=== PATIENT | female | born 1990 | race American Indian/Alaskan Native ===

== ENCOUNTER 2020-06-16 04:53 | Emergency (ER) | payer MEDICAID ==
--- NOTE | 2020-06-16 05:03 | EDM.PDOC ---
ED HPI GENERAL MEDICAL PROBLEM - General Chief Complaint: Drug or Alcohol Abuse Stated Complaint: MEDICAL VIA [place] Time Seen by Provider: 06/16/20 04:57 Source of Information: Reports: Patient, EMS History Limitations: Reports: No Limitations - History of Present Illness INITIAL COMMENTS - FREE TEXT/NARRATIVE: Marion is a 29-year-old female presenting to the ED via [facility] after having an episode of unresponsiveness. Law enforcement intercepted the patient at the [facility] where she was found unresponsive. The patient was administered Narcan 2 mg by law enforcement and they initiated CPR presumably for an absent pulse. Ice was activated and on their arrival she was alert and complaining of chest pain. The patient reports that she had been drinking [place] apple and took Percocet 30 mg likely resulting in her unresponsiveness. Rest of the details are a bit cloudy because of the patient's unresponsiveness. To the ED with a blood pressure 106/60, pulse rate of 110, SPO2 of 97% on 2 L. Treatments [employer]: Reports: See EMS Report, Other (see below) Other Treatments [employer]: narcan Middle Chest Pain Score (Numeric/FACES): 8 - Related Data Allergies Allergy/AdvReac Type Severity Reaction Status Date / Time No Known Allergies Allergy Verified 06/16/20 04:58 Home Meds: Home Meds NK [No Known Home Meds] 09/08/15 [History] Past Medical History - Past Health History Medical/Surgical History: Denies Medical/Surgical History ED ROS GENERAL - Review of Systems Review Of Systems: See Below Constitutional: Reports: No Symptoms HEENT: Reports: No Symptoms Respiratory: Reports: Other (Witnessed apnea after consuming alcohol and Percocet) Cardiovascular: Reports: Chest Pain (Presumably due to recent CPR) Endocrine: Reports: No Symptoms GI/Abdominal: Reports: No Symptoms : Reports: No Symptoms Musculoskeletal: Reports: No Symptoms Skin: Reports: No Symptoms Neurological: Reports: Seizure (EMS reported that the patient appeared to be having a seizure as noted by bystanders. They did not directly witness any seizure activity.) Psychiatric: Reports: Anxiety Hematologic/Lymphatic: Reports: No Symptoms Immunologic: Reports: No Symptoms ED EXAM, GENERAL - Physical Exam Exam: See Below Exam Limited By: No Limitations General Appearance: Alert, Anxious, Mild Distress Eye Exam: Bilateral Eye: EOMI, PERRL Throat/Mouth: Normal Inspection, Normal Lips, Normal Oropharynx, Normal Voice, No Airway Compromise Head: Atraumatic, Normocephalic Neck: Normal Inspection, Supple Respiratory/Chest: No Respiratory Distress, Lungs Clear, Normal Breath Sounds, Other (Chest tenderness to palpation over the sternum.) Cardiovascular: Normal Peripheral Pulses, Regular Rate, Rhythm, No Murmur Peripheral Pulses: 2+: Radial (L), Radial (R), Posterior Tibial (L), Posterior Tibial (R) GI/Abdominal: Normal Bowel Sounds, Soft, Non-Tender Extremities: Normal Inspection, Normal Range of Motion Neurological: Alert, Oriented, Normal Cognition, No Motor/Sensory Deficits Psychiatric: Normal Affect, Anxious Skin Exam: Warm, Dry, Intact, Normal Color Lymphatic: No Adenopathy #1 Interpretation EKG Date: 06/16/20 Time: 05:12 Rhythm: NSR Rate (Beats/Min): 112 [place]: Normal P-Wave: Enlarged QRS: Normal ST-T: Other (Nonspecific ST-T changes in the precordial leads and most limb leads) QT: Prolonged Comparison: NA - No Prior EKG Course - Vital Signs Last Recorded V/S: Last Vital Signs Temp 37.1 C 06/16/20 04:54 Pulse 98 06/16/20 05:44 Resp 16 06/16/20 05:44 BP 106/65 06/16/20 05:44 Pulse Ox 98 06/16/20 05:44 - Orders/Labs/Meds Orders: Active Orders 24 hr Category Date Time Status EKG Documentation Completion [RC] ASDIRECTED Care 06/16/20 04:58 Active Chest 2V [CR] Stat Exams 06/16/20 05:07 Taken EKG 12 Lead [EK] Routine Ther 06/16/20 04:57 Ordered Labs: Laboratory Tests 06/16/20 06/16/20 06/16/20 Range/Units 04:57 05:08 05:08 WBC 13.4 H (4.5-11.0) K/uL RBC 3.88 (3.30-5.50) M/uL Hgb 12.3 (12.0-15.0) g/dL Hct 37.3 (36.0-48.0) % MCV 96 (80-98) fL MCH 32 H (27-31) pg MCHC 33 (32-36) % Plt Count 164 (150-400) K/uL Neut % (Auto) 88 H (36-66) % Lymph % (Auto) 5 L (24-44) % Prentiss % (Auto) 6 (2-6) % Eos % (Auto) 0 L (2-4) % Baso % (Auto) 0 (0-1) % Sodium 141 (140-148) mmol/L Potassium 3.1 L (3.6-5.2) mmol/L Chloride 103 (100-108) mmol/L Carbon Dioxide 24 (21-32) mmol/L Anion Gap 17.1 H (5.0-14.0) mmol/L BUN 5 L (7-18) mg/dL Creatinine 0.8 (0.6-1.0) mg/dL Est Cr Clr Drug Dosing 92.04 mL/min Estimated GFR (MDRD) > 60 (>60) Glucose 94 (74-106) mg/dL Calcium 8.1 L (8.5-10.1) mg/dL Total Bilirubin 0.2 (0.2-1.0) mg/dL AST 24 (15-37) U/L ALT 23 (12-78) U/L Alkaline Phosphatase 79 (46-116) U/L Troponin I < 0.017 (0.000-0.056) ng/mL Total Protein 7.1 (6.4-8.2) g/dL Albumin 3.5 (3.4-5.0) g/dL Globulin 3.6 H (2.3-3.5) g/dL Albumin/Globulin Ratio 1.0 L (1.2-2.2) Urine Opiates Screen Negative (NEGATIVE) Ur Oxycodone Screen Presumptive positive H (NEGATIVE) Urine Methadone Screen Negative (NEGATIVE) Ur Propoxyphene Screen Negative (NEGATIVE) Ur Barbiturates Screen Negative (NEGATIVE) Ur Tricyclics Screen Negative (NEGATIVE) Ur Phencyclidine Scrn Negative (NEGATIVE) Ur Amphetamine Screen Negative (NEGATIVE) U Methamphetamines Scrn Negative (NEGATIVE) Urine MDMA Screen Negative (NEGATIVE) U Benzodiazepines Scrn Negative (NEGATIVE) U Cocaine Metab Screen Negative (NEGATIVE) U Marijuana (THC) Screen Presumptive positive H (NEGATIVE) Ethyl Alcohol mg/dL 06/16/20 Range/Units 05:08 WBC (4.5-11.0) K/uL RBC (3.30-5.50) M/uL Hgb (12.0-15.0) g/dL Hct (36.0-48.0) % MCV (80-98) fL MCH (27-31) pg MCHC (32-36) % Plt Count (150-400) K/uL Neut % (Auto) (36-66) % Lymph % (Auto) (24-44) % Prentiss % (Auto) (2-6) % Eos % (Auto) (2-4) % Baso % (Auto) (0-1) % Sodium (140-148) mmol/L Potassium (3.6-5.2) mmol/L Chloride (100-108) mmol/L Carbon Dioxide (21-32) mmol/L Anion Gap (5.0-14.0) mmol/L BUN (7-18) mg/dL Creatinine (0.6-1.0) mg/dL Est Cr Clr Drug Dosing mL/min Estimated GFR (MDRD) (>60) Glucose (74-106) mg/dL Calcium (8.5-10.1) mg/dL Total Bilirubin (0.2-1.0) mg/dL AST (15-37) U/L ALT (12-78) U/L Alkaline Phosphatase (46-116) U/L Troponin I (0.000-0.056) ng/mL Total Protein (6.4-8.2) g/dL Albumin (3.4-5.0) g/dL Globulin (2.3-3.5) g/dL Albumin/Globulin Ratio (1.2-2.2) Urine Opiates Screen (NEGATIVE) Ur Oxycodone Screen (NEGATIVE) Urine Methadone Screen (NEGATIVE) Ur Propoxyphene Screen (NEGATIVE) Ur Barbiturates Screen (NEGATIVE) Ur Tricyclics Screen (NEGATIVE) Ur Phencyclidine Scrn (NEGATIVE) Ur Amphetamine Screen (NEGATIVE) U Methamphetamines Scrn (NEGATIVE) Urine MDMA Screen (NEGATIVE) U Benzodiazepines Scrn (NEGATIVE) U Cocaine Metab Screen (NEGATIVE) U Marijuana (THC) Screen (NEGATIVE) Ethyl Alcohol 120 mg/dL Meds: Medications Discontinued Medications Generic Name Dose Route Start Last Admin Trade Name Freq PRN Reason Stop Dose Admin Ketorolac Tromethamine 30 mg 06/16/20 05:17 06/16/20 05:24 Ketorolac 30 Mg/Ml Sdv IVPUSH 06/16/20 05:18 30 mg ONETIME ONE Administration Potassium Chloride 40 meq 06/16/20 05:37 06/16/20 05:41 Potassium Chloride 20 Meq Tab.Er PO 06/16/20 05:38 40 meq ONETIME ONE Administration - Radiology Interpretation Free Text/Narrative:: Reviewed the two-view chest x-ray demonstrating normal skeletal anatomy without evidence for any acute fractures. Normal cardiac silhouette. Normal lung features without infiltrates. - Re-Assessments/Exams Free Text/Narrative Re-Assessment/Exam: 06/16/20 05:38 reviewed the patient's labs showing a mild leukocytosis likely demargination. Her comprehensive metabolic panel is significant for potassium of 3.1. Her ethanol level is 120. Troponin I is negative at less than 0.017. 06/16/20 06:19 x-rays of the chest failed to demonstrate any acute abnormalities. She does have significant tenderness in the sternum likely due to the CPR. We will put her on Toradol for pain control. She should avoid opiate use especially in the presence of alcohol. At this time, I believe she is stable for discharge. Will likely have ongoing chest pain for the next several days. Urine tox screen is positive for oxycodone and marijuana. Departure - Departure Time of Disposition: 06:20 Disposition: Home, Self-Care 01 Clinical Impression: Respiratory arrest before cardiac arrest, Acute chest wall pain Opiate overdose Qualifiers: Encounter type: initial encounter Injury intent: accidental or unintentional Qualified Code(s): T40.601A - Poisoning by unspecified narcotics, accidental (unintentional), initial encounter - Discharge Information Instructions: CPR, Adult, Alcohol Intoxication, [id number], Opioid Overdose Referrals: PCP,None [Primary Care Provider] - Forms: ED Department Discharge Care Plan Goals: Luckily your respiratory arrest was witnessed and law enforcement was able to intervene with Narcan to reverse the effects of the Percocet. In addition, you they initiated CPR which likely helped to survive this unintentional overdose. I would strongly consider drug treatment counseling especially in the face of fentanyl being readily available on the street and much more lethal. Chest will be sore for the next 3 to 5 days due to the chest compressions. I have prescribed Toradol for pain control. This is a nonnarcotic medication but strong enough to control the pain. Sepsis Event Note (ED) - Evaluation Sepsis Screening Result: No Definite Risk - Focused Exam Vital Signs: Vital Signs Temp Pulse Resp BP Pulse Ox 06/16/20 05:44 98 16 106/65 98 06/16/20 04:54 37.1 C 114 H 14 106/60 97 - Problem List & Annotations (1) Acute chest wall pain SNOMED Code(s): 668280694, 375227031 Code(s): R07.89 - OTHER CHEST PAIN Status: Acute Priority: High Current Visit: Yes (2) Opiate overdose SNOMED Code(s): 630760977 Code(s): T40.601A - POISONING BY UNSP NARCOTICS, ACCIDENTAL, INIT Status: Acute Priority: High Current Visit: Yes Qualifiers: Encounter type: initial encounter Injury intent: accidental or unintentional Qualified Code(s): T40.601A - Poisoning by unspecified narcotics, accidental (unintentional), initial encounter (3) Respiratory arrest before cardiac arrest SNOMED Code(s): 739292796 Code(s): I46.9 - CARDIAC ARREST, CAUSE UNSPECIFIED; R09.2 - RESPIRATORY ARREST Status: Acute Priority: High Current Visit: Yes - Problem List Review Problem List Initiated/Reviewed/Updated: Yes - My Orders Last 24 Hours: My Active Orders 06/16/20 04:57 EKG 12 Lead [EK] Routine 06/16/20 04:58 EKG Documentation Completion [RC] ASDIRECTED 06/16/20 05:07 Chest 2V [CR] Stat - Assessment/Plan Last 24 Hours: My Active Orders 06/16/20 04:57 EKG 12 Lead [EK] Routine 06/16/20 04:58 EKG Documentation Completion [RC] ASDIRECTED 06/16/20 05:07 Chest 2V [CR] Stat
[2020-06-16] MEDS ORDERED: Ketorolac 30 MG/ML SDV IVPUSH ONE (05:17)
[2020-06-16] MEDS ORDERED: Potassium Chloride 20 MEQ Tab.ER PO ONE (05:37)
[2020-06-16 05:45] VITALS: BP 106/65; PULSE 98
--- NOTE | 2020-06-16 09:05 | CR ---
CHEST: 2 view CLINICAL HISTORY:Chest pain COMPARISON:None FINDINGS: The heart size, pulmonary vascularity and hilar structures are normal. No infiltrate effusion or pneumothorax is seen. IMPRESSION: No acute cardiopulmonary process.
== END 2020-06-16 06:39 | disposition home or self-care (01) ==
LOC: JP.ED 04:53
DX: T40.601A Poisoning by unspecified narcotics, accidental (unintentional), initial encounter (principal); I46.9 Cardiac arrest, cause unspecified
CPT/HCPCS: 36415; 71046; 80053; 80305; 80307; 84484; 85025; 96374; 99285; A9270; J1885